=== PATIENT | female | born 1930 | race African-American/Black ===

== ENCOUNTER 2018-08-08 20:00 | Inpatient (IN) | payer MEDICAID, MEDICARE, OTHER ==
[~2018-08-08] VITALS: Ht 157.5 cm; Wt 52.2 kg
--- NOTE | 2018-08-08 01:40 | NUR ---
PETER RECEIVED FROM ER VIA [facility], AN 87 Y/O FEMALE WITH DIAGNOSIS OF DEHYDRATION. PLEASANTLY CONFUSED, UNABLE TO OBTAIN ANY INFORMATION, POOR HISTORIAN. HAS MULTIPLE WOUNDS, PICTURES TAKEN. COMBATIVE WHEN BEING REPOSITIONED. ORDERS CARRIED OUT , TELE SHOWING ST TO SB. NO SOB. V/S MONITORED. TO CONTINUE.
[~2018-08-08 20:00] MED LIST: AMLO5TAB9 PO; FURO40TA5 PO; HYDR-3980 PO; LEVO100T9 PO; LOSA50TA39 PO; MIRT15TA3 PO; POTA20TA10 PO
--- NOTE | 2018-08-08 20:22 | NUR ---
[id number] C/O GENERALIZED WEAKNESS "I FEEL BAD" PT POOR HISTORIAN. ALSO HAS KNEE PAIN, MOSTLY ON RIGHT SIDE. PER SON, PT HAS BONE TO BONE ARTHRITIS. PT IS AOX3, VSS, RR EVEN AND UNLABORED ON RA. NO ACUTE DISTRESS NOTED. SKIN INTACT. SON AND SISTER AT BEDSIDE. MADE COMFORTABLE AND READY FOR EVAL.
[2018-08-08 21:13] LABS: BASOPHILS # (AUTO) 0.1 /CMM (0.0-0.2); BASOPHILS % (AUTO) 1.1 % (0.0-2.0); EOSINOPHILS % (AUTO) 2.6 % (0.0-6.0); HEMATOCRIT 41 % (33-45); LYMPHOCYTES # (AUTO) 1.6 /CMM (0.8-4.8); MEAN CORPUSCULAR HGB CONC 32 g/dl (31.0-36.0); MEAN CORPUSCULAR VOLUME 95 fL (82-100); MONOCYTES # (AUTO) 0.8 /CMM (0.1-1.30); MONOCYTES % (AUTO) 7.8 % (2.0-12.0); NEUTROPHILS # (AUTO) 6.9 /CMM (1.8-8.9); NEUTROPHILS % (AUTO) 71.5 % (43.0-81.0); PLATELET COUNT (AUTO) 309 /CMM (150-450); RED BLOOD CELL COUNT(AUTO) 4.25 MIL/uL (4.0-5.2); WHITE BLOOD COUNT (AUTO) 9.7 K/uL (4.3-11.0)
[2018-08-08 21:23] LABS: CALCIUM, SERUM 9.4 mg/dL (8.5-10.1); CARBON DIOXIDE 26 mmol/L (21-32); CHLORIDE 104 mmol/L (98-107); CREATININE 0.5 mg/dL (0.6-1.3); GLUCOSE 108 mg/dL (74-106); POTASSIUM 3.5 mmol/L (3.5-5.1); SODIUM SERUM 138 mmol/L (136-145); UREA NITROGEN, BLOOD 18 mg/dL (7-18)
[2018-08-08 21:28] LABS: ALANINE AMINOTRANSFERASE 30 U/L (12-78); ALBUMIN 2.8 g/dL (3.4-5.0); ALKALINE PHOSPHATASE 127 U/L (46-116); ASPARTATE AMINOTRANSFERASE 20 U/L (15-37); BILIRUBIN,DIRECT 0.1 mg/dL (0.0-0.2); BILIRUBIN,TOTAL 0.4 mg/dL (0.2-1.0); TOTAL PROTEIN, SERUM 7.2 g/dL (6.4-8.2)
--- NOTE | 2018-08-08 23:04 | NUR ---
PT RESTING WITH FAMILY AT BEDSIDE. NO COMPLAINTS AT THIS TIME. WILL CONT TO MONITOR.
[2018-08-08] MEDS ORDERED: MORPHINE SULFATE INJ 2 MG/ML DISP.SYRIN IV ONE (23:30)
[2018-08-08] MEDS ORDERED: IV NS 0.9% 1,000 ML BAG IV ONE (23:30)
[2018-08-08] MEDS ORDERED: ONDANSETRON HCL/PF 4 MG/2 ML VIAL IVP ONE (23:30)
[2018-08-08 23:55] LABS: APPEARANCE,URINE Clear (CLEAR); BILIRUBIN,URINE Negative (NEGATIVE); BLOOD, URINE Negative Ery/uL (NEGATIVE); COLOR,URINE Yellow (YELLOW); KETONES,URINE Negative (NEGATIVE); LEUKOCYTE ESTERASE ,URINE Negative (NEGATIVE); NITRITE, URINE Negative (NEGATIVE); PH,URINE 6.5 (5.0-8.0); PROTEIN,URINE Negative (NEGATIVE); UGLUCOSE Negative (NEGATIVE)
[2018-08-09 00:23] LABS: BACTERIA,URINE Rare /HPF (None Seen); RBC,URINE 0-2 /HPF (0-2); SQUAMOUS EPITHELIAL CELL,UR Rare /HPF (None Seen); WBC,URINE 0-2 /HPF (0-3)
[2018-08-09] MEDS ORDERED: ONDANSETRON HCL/PF 4 MG/2 ML VIAL ONE (00:23)
[2018-08-09] MEDS ORDERED: MORPHINE SULFATE INJ 2 MG/ML DISP.SYRIN ONE (00:23)
--- NOTE | 2018-08-09 00:32 | NUR ---
BED ASSIGNMENT TELE 310-2
[2018-08-09] MEDS ORDERED: MORPHINE SULFATE INJ 2 MG/ML DISP.SYRIN IV ONE (01:00)
[2018-08-09] MEDS ORDERED: Z GUARD REMEDY 2 OZ OINT TP PRN (01:00)
[2018-08-09] MEDS ORDERED: ONDANSETRON HCL/PF 4 MG/2 ML VIAL IVP PRN (01:00)
[2018-08-09] MEDS ORDERED: MAGNESIUM HYDROXIDE 30 ML UDC PO PRN (01:00)
[2018-08-09] MEDS ORDERED: MAG HYDROX/AL HYDROX/SIMETH 30 ML UDC PO PRN (01:00)
[2018-08-09] MEDS ORDERED: ZOLPIDEM TARTRATE 5 MG TABLET PO PRN (01:00)
--- NOTE | 2018-08-09 01:09 | NUR ---
REPORT GIVEN TO SOLOMON RIVAS FOR [id number]
--- NOTE | 2018-08-09 01:36 | NUR ---
[facility]
[2018-08-09] MEDS: IV NS 0.9% 1,000 ML IV SCH ×3 (02:26→22:10)
[2018-08-09 03:46] VITALS: BP 141/58
--- NOTE | 2018-08-09 03:50 | NUR ---
MSRN PULLED OUT HL AND TELE MONITOR. UNABLE TO RESTART, UNCOOPERATIVE THIS TIME.
[2018-08-09 04:00] VITALS: BP 138/88
[2018-08-09] MEDS ORDERED: Magnesium 1GM/D5W 100ML PREMIX PIGGYBACK IV SCH (04:00)
--- NOTE | 2018-08-09 05:00 | NUR ---
MSRN SON MONTY CAME , ABLE TO PROVIDE INFO. WANTS HIS MOTHER TO BE FULL CODE AND STATES HAS DPOA. STAYED WITH PATIENT FOR AWHILE, PATIENT AGREED TO HAVE HL INSERTED.
--- NOTE | 2018-08-09 05:30 | NUR ---
MSRN PRESENT IVF CONTINUED, [PLACED CALL TO DR. RAMON, MAG LEVEL WAS 1.6, ORDERS RECEIVED.
--- NOTE | 2018-08-09 07:00 | NUR ---
MSRN ENDORSED TO INCOMING RN FOR CONTINUITY OF CARE.
[2018-08-09] MEDS: Magnesium 1GM/D5W 100ML PREMIX 100 ML IV SCH ×2 (07:50→09:47)
[2018-08-09 08:00] VITALS: BP_SYST 121; BP_SYST 129; BP_DIAS 66; BP_DIAS 72
--- NOTE | 2018-08-09 08:00 | NUR ---
RN NOTES RECEIVED PATIENT IN THE ROOM TELE SR-56, PATIENT STABLE NO ACUTE RESPIRATORY DISTRESS, V/S STABLE ADMINISTERED SCHEDULED MEDICATION, ASSIST TURN AND REPOSTION Q 2 HR. DVT PUMP ON. PATIENT HAS A MULTIPLE WOUNDS ON BUTTOCK AREA, AND COMPLAINING OF PAIN ON LEFT KNEE. PATIENT INCONTINENT, ON DIAPER, APPLIED Z-GUARD. CALL LIGHT WITHIN TO REACH , SAFETY PRECAUTION MAINTAINED ALL THE TIME.
[2018-08-09] MEDS ORDERED: HYDROCODONE/APAP 10/325MG 1 EA TABLET PO SCH (09:00)
[2018-08-09] MEDS ORDERED: Magnesium 1GM/D5W 100ML PREMIX 100 ML IV SCH (09:09)
[2018-08-09] MEDS: FUROSEMIDE 40 MG TABLET PO SCH ×2 (09:47→16:23)
[2018-08-09] MEDS: POTASSIUM CHLORIDE 20 MEQ TAB.PRT.SR PO SCH ×3 (09:47→11:02)
[2018-08-09] MEDS: LOSARTAN POTASSIUM 50 MG TABLET PO SCH (09:47)
[2018-08-09] MEDS: AMLODIPINE BESYLATE 5 MG TABLET PO SCH (09:48)
[2018-08-09] MEDS: LEVOTHYROXINE SODIUM 100 MCG TABLET PO SCH (09:59)
[2018-08-09] MEDS: HYDROCODONE/APAP 5/325MG 1 EACH TABLET PO PRN ×2 (11:03→16:24)
--- NOTE | 2018-08-09 11:03 | NUR ---
rn notes administered narco 5/325 mg po prn for generalized pain 08/14 per patient request bp-121/66, p-86, also seen by wound nurse. DVT pump on. Assist patient turn and reposition q 2 hr. call light within to reach.
--- NOTE | 2018-08-09 11:06 | NUR ---
WOUND CARE CONSULT: PT PRESENTS WITH LEFT LOWER EXTREMITY CONTRACTURE, RT LATERAL ANKLE INTACT DEEP TISSUE INJURY, DRY ABRASIONS TO KNEES, UNSTAGEABLE ULCER TO RT HIP, SCARRING TO SACRUM EXTENDING TO RT BUTTOCK AND INCONTINENCE ASSOCIATED SKIN DAMAGE (OPEN SKIN) TO GLUTEAL CREASE AND LEFT BUTTOCK, ALL PRESENT ON ADMISSION. PT AGITATED AT TIMES. RECOMMEND SURGICAL CONSULT. DR YO SINGH NOTIFIED OF CONSULT REQUEST. FIRST STEP LOW AIRLOSS MATTRESS ON ORDER. RECOMMENDATIONS MADE FOR SKIN PROTECTION. DISCUSSED WITH NURSING STAFF. DEFER TO SURGICAL TEAM FOR WOUND TREATMENT PLAN. WILL SEE PRLeah NOVAK IN AGREEMENT WITH PLAN OF CARE. DIETARY AND SOCIAL SERVICE CONSULTS IN PLACE. CURRENT DUARTE SCORE IS 11. Addendum: 08/09/18 at 1109 by LAURIE LEWIS WNDNU Amended: Links added.
[2018-08-09] MEDS: MIRTAZAPINE SOLUTAB 15 MG/UDTABLET TAB.RAPDIS PO SCH (12:41)
[2018-08-09 16:00] VITALS: BP 129/88
--- NOTE | 2018-08-09 16:24 | NUR ---
rn notes administered narco 5/325 mg po prn liza left knee pain /10 per patient request, v/s taken bp -129/88, p-75, family next to the bed, assist turn and reposition q 2 hr. continued monitoring.
--- NOTE | 2018-08-09 17:00 | NUR ---
RN NOTES PATIENT SON AND SISTER NEXT TO THE BED, ASKING TOPICAL MEDICATION ON LEFT KNEE PAIN. NOTIFIED Dr. SUN, AND GET TO ORDER LIDOCAINE 5% PATCH. ORDER TAKEN AND CARRIED OUT., PATIENT SIGN CONSENT FORM FOR DEBRIDEMENT ON RIGHT HIP, AND BUTTOCK PER WOUND MARLO HUTCHINS.APPLIED AIR MATTRESS. CONTINUED MONITORING.
[2018-08-09] MEDS: LIDOCAINE 5% (PATCH) 1 EA PATCH TP SCH (18:12)
--- NOTE | 2018-08-09 18:30 | NUR ---
RN NOTES PATIENT STABLE ASSIST PER UNDERCOLLAR MAKER FOR EATING DINNER. PATIENT STABLE AFTER PAIN MEDICATION. CALL LIGHT WITHIN TO REACH. ASSIST TURN AND REPOSTION Q 2 HR. ENDORSED ONCOMING NURSE FOLLOW PLAN OF CARE.
--- NOTE | 2018-08-09 19:54 | NUR ---
MS RN NOTES RECEIVED ON BED A/O X4,CALM AND QUIET,BREATHING REGULAR,NOT IN ANY FORM OF DISTRESS.IVF NS AT 100ML/HR RATE IN PROGRESS ON LFA,SITE PATENT.NOTED MULTIPLE SMALL WOUNDS ON RIGHT HIP,RIGHT LEFT BUTTOCKS,PLANNED DEBRIDEMENT AT BEDSIDE TOMORROW.REPOSITION PER PROTOCOL.WILL CONTINUE TO MONITOR STATUS.
[2018-08-09 20:00] VITALS: BP 127/67
[2018-08-09] MEDS ORDERED: LIDOCAINE 1%-EPI 1:100,000 20 ML VIAL TP PRN (23:00)
[2018-08-09] MEDS: HYDROGEL DRESSING 90 GM TUBE TP SCH (23:29)
[2018-08-09] MEDS: Z GUARD REMEDY 2 OZ OINT TP SCH (23:29)
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
[2018-08-10 06:42] LABS: BASOPHILS # (AUTO) 0.1 /CMM (0.0-0.2); BASOPHILS % (AUTO) 0.9 % (0.0-2.0); EOSINOPHILS % (AUTO) 4.3 % (0.0-6.0); HEMATOCRIT 42 % (33-45); HEMOGLOBIN 13.6 g/dL (11.5-14.8); LYMPHOCYTES # (AUTO) 1.5 /CMM (0.8-4.8); LYMPHOCYTES % (AUTO) 20.6 % (20.0-44.0); MEAN CORPUSCULAR HGB CONC 32 g/dl (31.0-36.0); MEAN CORPUSCULAR VOLUME 95 fL (82-100); MONOCYTES # (AUTO) 0.7 /CMM (0.1-1.30); MONOCYTES % (AUTO) 9.1 % (2.0-12.0); NEUTROPHILS # (AUTO) 4.7 /CMM (1.8-8.9); NEUTROPHILS % (AUTO) 65.1 % (43.0-81.0); PLATELET COUNT (AUTO) 306 /CMM (150-450); RED BLOOD CELL COUNT(AUTO) 4.44 MIL/uL (4.0-5.2); WHITE BLOOD COUNT (AUTO) 7.3 K/uL (4.3-11.0)
[2018-08-10 07:00] LABS: ALANINE AMINOTRANSFERASE 25 U/L (12-78); ALBUMIN 2.9 g/dL (3.4-5.0); ALKALINE PHOSPHATASE 145 U/L (46-116); ASPARTATE AMINOTRANSFERASE 19 U/L (15-37); BILIRUBIN,TOTAL 0.6 mg/dL (0.2-1.0); CALCIUM, SERUM 9.2 mg/dL (8.5-10.1); CARBON DIOXIDE 30 mmol/L (21-32); CHLORIDE 104 mmol/L (98-107); CREATININE 0.6 mg/dL (0.6-1.3); GLUCOSE 103 mg/dL (74-106); PHOSPHORUS 3.3 mg/dL (2.5-4.9); POTASSIUM 4.2 mmol/L (3.5-5.1); SODIUM SERUM 141 mmol/L (136-145); TOTAL PROTEIN, SERUM 7.6 g/dL (6.4-8.2); UREA NITROGEN, BLOOD 8 mg/dL (7-18)
[2018-08-10 07:04] LABS: CHOLESTEROL 205 mg/dL (<200); HDL CHOLESTEROL 74 mg/dL (40-60); LDL 121 mg/dL (0-99); THYROID STIMULATING HORMONE 34.788 uIU/mL (0.358-3.74); TRIGLYCERIDES 59 mg/dL (30-150)
[2018-08-10 08:00] VITALS: BP 131/68
--- NOTE | 2018-08-10 08:00 | NUR ---
rn notes SEEN PATIENT IN THE BED A/O X2/3. PATIENT STABLE, REFUSED PAIN, NO RESPIRATORY DISTRESS. PATIENT BED BOUND, ASSIST TURN AND REPOSTION Q 2 HR. PATIENT EATING BREAKFAST. ADMINISTERED SCHEDULED MEDICATION. DVT PUMP ON, DRESSING CHANGED. PATIENT ON AIR MATTRESS. IV ACCESS ON LEFT FA INTACT, INFUSING NS AT 100 ML/HR.
[2018-08-10] MEDS: AMLODIPINE BESYLATE 5 MG TABLET PO SCH (08:41)
[2018-08-10] MEDS: LOSARTAN POTASSIUM 50 MG TABLET PO SCH (08:41)
[2018-08-10] MEDS: FUROSEMIDE 40 MG TABLET PO SCH (08:41)
[2018-08-10] MEDS: LEVOTHYROXINE SODIUM 100 MCG TABLET PO SCH (08:41)
[2018-08-10] MEDS: MIRTAZAPINE SOLUTAB 15 MG/UDTABLET TAB.RAPDIS PO SCH (08:41)
[2018-08-10] MEDS: POTASSIUM CHLORIDE 20 MEQ TAB.PRT.SR PO SCH (08:41)
[2018-08-10] MEDS: HYDROGEL DRESSING 90 GM TUBE TP SCH ×2 (08:42→20:49)
[2018-08-10] MEDS: Z GUARD REMEDY 2 OZ OINT TP SCH ×2 (08:42→20:50)
[2018-08-10] MEDS: IV NS 0.9% 1,000 ML IV SCH (08:48)
--- NOTE | 2018-08-10 12:00 | NUR ---
RN NOTES PATIENT STABLE, REFUSED PAIN, ASSIST TURN AND REPOSTION Q 2 HR. CONTINUED MONITORING. CALL LIGHT WITHIN TO REACH.
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
[2018-08-10 16:00] VITALS: BP 100/54
--- NOTE | 2018-08-10 17:00 | NUR ---
rn notes debridement done on bedside by Paige SELLERS. patient stable, picture taken. patient stable refused pain, tolerated procedure well. call light within to reach, son next to the bed. continued monitoring.
[2018-08-10] MEDS: LIDOCAINE 5% (PATCH) 1 EA PATCH TP SCH (17:39)
[2018-08-10] MEDS: PANTOPRAZOLE 40 MG TABLET.DR PO SCH (17:39)
[2018-08-10] MEDS: ENOXAPARIN SODIUM 30 MG/0.3 ML DISP.SYRIN SQ SCH (17:40)
[2018-08-10] MEDS: ENSURE ENLIVE CHOC 237 ML CAN PO SCH (17:41)
--- NOTE | 2018-08-10 18:30 | NUR ---
RN NOTES PATIENT STABLE, ADMINISTERED SCHEDULED MEDICATION, V/S STABLE. PATIENT EATING DINNER, REFUSED PAIN. CALL LIGHT WITHIN TO REACH, SAFETY PRECAUTION MAINTAINED ALL THE TIME. NEEDS ATTENDED AND ANTICIPATED. ENDORSED ONCOMING NURSE FOLLOW PLAN OF CARE.
--- NOTE | 2018-08-10 19:40 | NUR ---
MS RN NOTES RECEIVED ON BED A/O X2,WITH EPISODE OF CONFUSION.SALINE LOCK LEFT FORE ARM INTACT AND PATENT.S/O WOUND DEBRIDEMENT ON RIGHT HIP AND RIGHT BUTTOCK.MEPILEX IN PLACE.SPECIALTY MATTRESS IN USED FOR WOUND MANAGEMENT.REPOSITION Q 2 HOURS PER PROTOCOL.FALL PRECAUTION OBSERVED,BED ON LOWEST POSITION AND LOCKED.CALL LIGHT IN REACH,NEEDS ANTICIPATED.
[2018-08-10 20:00] VITALS: BP 109/57
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
--- NOTE | 2018-08-10 21:00 | NUR ---
MS RN NOTES MACHO MILLAN AT BEDSIDE THIS TIME.
[2018-08-10] MEDS: HYDROCODONE/APAP 5/325MG 1 EACH TABLET PO PRN (22:11)
--- NOTE | 2018-08-10 22:11 | NUR ---
MS RN NOTES NOTED HAVING FACIAL GRIMACE,MEDICATED WITH NORCO 5/325MG,1TAB PO ORDERED.
--- NOTE | 2018-08-11 | NUR ---
MS RN NOTES SLEEPING AT THIS TIME,KEPT WARM AND COMFORTABLE.
--- NOTE | 2018-08-11 06:41 | NUR ---
MS RN NOTES ON BED SLEEPING,TYRON FOR PAIN MANAGEMENT EFFECTIVE.DRESSING CHANGE DONE TO RIGHT HIP AND SACRAL AREA.REPOSITION PER PROTOCOL.CALL LIGHT IN REACH,NEEDS ANTICIPATED.
[2018-08-11] MEDS: PANTOPRAZOLE 40 MG TABLET.DR PO SCH (07:30)
[2018-08-11] MEDS: LEVOTHYROXINE SODIUM 100 MCG TABLET PO SCH (07:30)
--- NOTE | 2018-08-11 07:30 | NUR ---
MS RN Opening Note Patient currently resting in bed with eyes open in Semi-Fowlers position, no acute distress noted. Aspiration precautions maintained. Easily arousable to verbal and tactile stimuli. Alert and oriented x 2, able to make needs known. Does not state any pain. Respirations even and unlabored on room air. Peripheral IV access to the left forearm 20 gauge, intact, patent and saline locked. Safety and fall precautions in place: bed in lowest and locked position, side rails up x2, bed alarm on, call light and personal possessions in reach, room well lit, floor clutter-free. Patient currently clean, dry and comfortable, on Isoflex specialty mattress. Will continue to monitor and intervene as needed.
[2018-08-11 08:00] VITALS: BP 124/57
[2018-08-11] MEDS: ENSURE ENLIVE CHOC 237 ML CAN PO SCH ×3 (10:23→17:31)
[2018-08-11] MEDS: AMLODIPINE BESYLATE 5 MG TABLET PO SCH (10:24)
[2018-08-11] MEDS: LOSARTAN POTASSIUM 50 MG TABLET PO SCH (10:24)
[2018-08-11] MEDS: POTASSIUM CHLORIDE 20 MEQ TAB.PRT.SR PO SCH (10:24)
[2018-08-11] MEDS: Z GUARD REMEDY 2 OZ OINT TP SCH ×2 (10:25→21:15)
[2018-08-11] MEDS: HYDROGEL DRESSING 90 GM TUBE TP SCH ×2 (10:25→21:15)
[2018-08-11] MEDS: MIRTAZAPINE SOLUTAB 15 MG/UDTABLET TAB.RAPDIS PO SCH (10:27)
--- NOTE | 2018-08-11 13:00 | NUR ---
m/s clinical education coordinator: md visit seen and examined by dr. vasquez with new orders. orders acknowledged. for case management to make arrangement re: d'c planning to acute rehab. dr. vasquez called son and updated plan of care over the phone. will continue to monitor.
--- NOTE | 2018-08-11 15:00 | NUR ---
m/s correction officer [facility]: notes pt in bed resting comfortable with sitter at bedside. call light within reach. will monitor.
[2018-08-11 16:00] VITALS: BP 95/56
--- NOTE | 2018-08-11 17:00 | NUR ---
m/s wet process head miller: notes dinner served with hob elevated. sitter remains at bedside. will monitor.
[2018-08-11] MEDS: LIDOCAINE 5% (PATCH) 1 EA PATCH TP SCH (17:29)
--- NOTE | 2018-08-11 18:15 | NUR ---
m/s spindle frame carver: notes incontinent care rendered by sitter. needs attended. no distress noted. will continue to monitor.
--- NOTE | 2018-08-11 19:00 | NUR ---
m/s mortgage funder: notes report given to teresa (rn) for continuity of care.
--- NOTE | 2018-08-11 19:20 | NUR ---
MS RN NOTES RECEIVED ON BED A/O X1-2,WITH EPISODE OF CONFUSION,BREATHING NORMAL,KCI MATTRESS IN USED FOR WOUND MANAGEMENT,S/P WOUND DEBRIDEMENT ON RIGHT BUTTOCK AND RIGHT HIP AREA,MEPILEX IN PLACE.SITTER AT BEDSIDE FOR SAFETY.REPOSITION PER PROTOCOL.CALL LIGHT IN REACH,NEEDS ANTICIPATED.
[2018-08-11 20:00] VITALS: BP 97/50
[2018-08-11] MEDS: ENOXAPARIN SODIUM 30 MG/0.3 ML DISP.SYRIN SQ SCH (21:06)
[2018-08-11] MEDS: ACETAMINOPHEN 325 MG TABLET PO PRN (21:09)
--- NOTE | 2018-08-11 21:09 | NUR ---
MS RN NOTES MOREKHA,CLAIMED PAIN 3/10 ON PAIN SCALE.TYLENOL 650MG PO GIVEN ORDERED.
--- NOTE | 2018-08-11 21:21 | NUR ---
MS RN NOTES DRESSING CHANGED DONE RIGHT HI WOUND AND RIGHT BUTTOCKS AREA WITH CURASOL AND APPLIED MEPILEX,REPOSITION.
--- NOTE | 2018-08-12 06:14 | NUR ---
MS RN NOTES SLEPT WELL WITH TYLENOL.PAIN ON RIGHT BUTTOCKS IMPROVED.POSSIBLE DISCHARGE TO [facility] FOR AMBULATION.IN NO ACUTE DISTRESS.WILL ENDORSE TO DAY NURSE FOR LORY.
--- NOTE | 2018-08-12 07:30 | NUR ---
RN MS NOTES PT IN BED, AWAKE, ALERT TO SELF, VERBALLY RESPONSIVE, NO COMPLAINT OF PAIN OR ANY DISCOMFORT, CALL LIGHT WITHIN REACH, KEPT WARM AND COMFORTABLE IN BED, SAFETY PRECAUTIONS OBSERVED.
[2018-08-12 08:00] VITALS: BP 103/50
[2018-08-12] MEDS: LEVOTHYROXINE SODIUM 100 MCG TABLET PO SCH (08:18)
[2018-08-12] MEDS: PANTOPRAZOLE 40 MG TABLET.DR PO SCH (08:18)
[2018-08-12] MEDS: ENSURE ENLIVE CHOC 237 ML CAN PO SCH ×3 (08:19→17:21)
[2018-08-12] MEDS: MIRTAZAPINE SOLUTAB 15 MG/UDTABLET TAB.RAPDIS PO SCH (08:19)
[2018-08-12] MEDS: POTASSIUM CHLORIDE 20 MEQ TAB.PRT.SR PO SCH (08:19)
[2018-08-12] MEDS: LOSARTAN POTASSIUM 50 MG TABLET PO SCH (08:20)
[2018-08-12] MEDS: AMLODIPINE BESYLATE 5 MG TABLET PO SCH (08:20)
[2018-08-12] MEDS: HYDROGEL DRESSING 90 GM TUBE TP SCH ×2 (08:51→21:22)
[2018-08-12] MEDS: Z GUARD REMEDY 2 OZ OINT TP SCH ×2 (08:51→21:22)
--- NOTE | 2018-08-12 12:31 | NUR ---
RN MS NOTES PT IN BED, AWAKE, ALERT TO SELF, VERBALLY RESPONSIVE, NO COMPLAINT AT THIS TIME, RESPIRATIONS NORMAL, ASSISTED WITH MEALS, ASSISTED IN REPOSITIONING, CALL LIGHT WITHIN REACH, NEEDS ATTENDED.
--- NOTE | 2018-08-12 14:15 | NUR ---
RN MS NOTES PT'S SON BETTY CAME TO VISIT HIS MOM AROUND NOONTIME, WHEN HE LEFT AT THIS TIME 1415, HE REPORTED TO THE RN AND CHARGE NURSE THAT HIS MOTHER'S CELLPHONE IS MISSING, INFORMED HIM THAT IT WILL BE CHECKED, SEARCHED PT'S ROOM, HER BED, DRAWERS, SHEETS, NO CELLPHONE WAS FOUND. ALSO MADE CALLS TO KITCHEN AND LAUNDY, THEY DID NOT FIND ANY CELLPHONE. CHARGE NURSE AND FREIGHT TALLIER INFORMED.
[2018-08-12 16:00] VITALS: BP 113/48
[2018-08-12] MEDS: LIDOCAINE 5% (PATCH) 1 EA PATCH TP SCH (17:17)
--- NOTE | 2018-08-12 18:07 | NUR ---
RN MS NOTES PT IN BED, AWAKE, ALERT AND VERBALLY RESPONSIVE, NO COMPLAINT OF PAIN AT THIS TIME, RESPIRATIONS NORMAL, CALL LIGHT WITHIN REACH, ASSISTED WITH MEALS, WOUND CARE PROVIDED, PM CARE RENDERED, KEPT CLEAN AND DRY, ALL NEEDS ATTENDED.
--- NOTE | 2018-08-12 19:30 | NUR ---
MS RN NOTE: PATIENT RESTING IN BED NO ACUTE DISTRESS NOTED. BREATHING EVEN AND UNLABORED, NO SOB NOTED. IV TO LFA IN PLACE. BED LOCKED AND IN LOWEST POSITION, CALL LIGHT IN REACH. WILL CONTINUE TO MONITOR.
[2018-08-12 20:00] VITALS: BP 94/43
[2018-08-12] MEDS: ENOXAPARIN SODIUM 30 MG/0.3 ML DISP.SYRIN SQ SCH (21:22)
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
--- NOTE | 2018-08-13 06:10 | NUR ---
MS RN NOTE: PATIENT RESTING IN BED NO ACUTE DISTRESS NOTED. BREATHING EVEN AND UNLABORED, NO SOB NOTED. IV TO LFA IN PLACE. BED LOCKED AND IN LOWEST POSITION, CALL LIGHT IN REACH. WILL ENDORSE TO DAY NURSE TO CONTINUE WITH PLAN OF CARE.
[2018-08-13 08:00] VITALS: BP 112/59
--- NOTE | 2018-08-13 08:00 | NUR ---
RN NOTES RECEIVED PATIENT IN THE BED A/O X2/3 WITH CONFUSION. PATIENT HAS NO ACUTE RESPIRATORY DISTRESS, ON AIR MATTRESS, DVT PUMP ON. V/S TAKEN STABLE, PATIENT TOTAL CARE, ASSIST TURN AND REPOSTION Q 2 HR. IV ACCESS ON LEFT FA INTACT. ADMINISTERED SCHEDULED MEDICATION, CALL LIGHT WITHIN TO REACH. DRESSING CHANGED ON RIGHT HIP, AND BUTTOCKS, KEEP BOTH LEGS ELEVATED USING PILLOWS SAFETY PRECAUTION MAINTAINED ALL THE TIME.
[2018-08-13] MEDS: MIRTAZAPINE SOLUTAB 15 MG/UDTABLET TAB.RAPDIS PO SCH (08:48)
[2018-08-13] MEDS: LEVOTHYROXINE SODIUM 100 MCG TABLET PO SCH (08:48)
[2018-08-13] MEDS: ENSURE ENLIVE CHOC 237 ML CAN PO SCH ×3 (08:49→18:24)
[2018-08-13] MEDS: PANTOPRAZOLE 40 MG TABLET.DR PO SCH (08:49)
[2018-08-13] MEDS: POTASSIUM CHLORIDE 20 MEQ TAB.PRT.SR PO SCH (08:49)
[2018-08-13] MEDS: LOSARTAN POTASSIUM 50 MG TABLET PO SCH (08:50)
[2018-08-13] MEDS: HYDROGEL DRESSING 90 GM TUBE TP SCH (08:50)
[2018-08-13] MEDS: Z GUARD REMEDY 2 OZ OINT TP SCH (08:51)
[2018-08-13] MEDS: AMLODIPINE BESYLATE 5 MG TABLET PO SCH (08:51)
[2018-08-13] MEDS: ACETAMINOPHEN 325 MG TABLET PO PRN ×2 (08:58→18:29)
--- NOTE | 2018-08-13 08:58 | NUR ---
RN NOTES ADMINISTERED TYLENOL 650 MG PO PRN FOR LEFT KNEE PAIN 09/13 PER PATIENT REQUEST. CONTINUED MONITORING.
[2018-08-13 12:14] LABS: BASOPHILS # (AUTO) 0.1 /CMM (0.0-0.2); BASOPHILS % (AUTO) 0.6 % (0.0-2.0); EOSINOPHILS % (AUTO) 1.4 % (0.0-6.0); HEMATOCRIT 38 % (33-45); LYMPHOCYTES # (AUTO) 1.2 /CMM (0.8-4.8); LYMPHOCYTES % (AUTO) 12.2 % (20.0-44.0); MEAN CORPUSCULAR HGB CONC 32 g/dl (31.0-36.0); MEAN CORPUSCULAR VOLUME 95 fL (82-100); MONOCYTES # (AUTO) 0.8 /CMM (0.1-1.30); MONOCYTES % (AUTO) 7.9 % (2.0-12.0); NEUTROPHILS % (AUTO) 77.9 % (43.0-81.0); PLATELET COUNT (AUTO) 277 /CMM (150-450); RED BLOOD CELL COUNT(AUTO) 3.98 MIL/uL (4.0-5.2); WHITE BLOOD COUNT (AUTO) 10.2 K/uL (4.3-11.0)
--- NOTE | 2018-08-13 12:22 | NUR ---
RN NOTES MEDICATION WERE ADMINISTERED FOR PAIN EFFECTIVE, PATIENT IN THE BED EATING LUNCH. ASSIST TURN AND REPOSTION Q 2 HR. SEEN PATIENT BY Dr. ANDERS PATIENT WILL D/C SNF. SON NAME BETTY AWARE OF. CONTINUED MONITORING
[2018-08-13 12:57] LABS: CALCIUM, SERUM 9.7 mg/dL (8.5-10.1); CARBON DIOXIDE 27 mmol/L (21-32); CHLORIDE 102 mmol/L (98-107); GLUCOSE 107 mg/dL (74-106); POTASSIUM 4.1 mmol/L (3.5-5.1); SODIUM SERUM 137 mmol/L (136-145); UREA NITROGEN, BLOOD 16 mg/dL (7-18)
[2018-08-13 12:58] LABS: ALANINE AMINOTRANSFERASE 22 U/L (12-78); ALBUMIN 2.4 g/dL (3.4-5.0); ALKALINE PHOSPHATASE 128 U/L (46-116); ASPARTATE AMINOTRANSFERASE 17 U/L (15-37); BILIRUBIN,TOTAL 0.4 mg/dL (0.2-1.0); CREATININE 0.5 mg/dL (0.6-1.3); TOTAL PROTEIN, SERUM 6.9 g/dL (6.4-8.2)
[2018-08-13 16:00] VITALS: BP 129/67
[2018-08-13] MEDS: LIDOCAINE 5% (PATCH) 1 EA PATCH TP SCH (18:24)
--- NOTE | 2018-08-13 18:29 | NUR ---
RN NOTES ADMINISTERED TYLENOL 650 MG PO PRN FOR LEFT KNEE PAIN 5/10 PER PATIENT REQUEST, CONTINUED MONITORING.
--- NOTE | 2018-08-13 19:15 | NUR ---
TELEPHONER NOTES PATIENT DISCHARGE AT THIS TIME GOING SNF. PATIENT STABLE REFUSED PAIN, V/S WNL, HAS NO ACUTE RESPIRATORY DISTRESS. MED RECONCILIATION AND DISCHARGE ORDER REVIEWED AND EXPLAINED TO. REPORT GIVEN SNF RN. RN VERBALIZED UNDERSTANDING. SON AWARE OF DISCHARGE PLANING. PATIENT SIGN PAPERWORK, PICTURE TAKEN. PATIENT PHYSICIAN ASSISTANT CERTIFIED BY AMBULANCE. PATIENT WILL FOLLOW SNF CIRCUIT BOARD DRAFTER Dr ANDERS.
--- NOTE | 2018-08-15 15:58 | NUR ---
SW received a call from [facility] social media developer Emiliana inquiring as to where pt. was discharged to. Pt. was discharged to [facility] located at [facility] Mitchell Alvarado .
== END 2018-08-13 19:25 | DRG 264 ==
LOC: ER 20:05 → TELE 08-09 00:41 → MED 08-09 10:44
PROVIDERS: ADMIT Internal Medicine; ATTEND Internal Medicine
PROC: 0JB70ZZ Excision of Back Subcutaneous Tissue and Fascia, Open Approach (ICD-10-PCS; principal; 2018-08-10)
PROC: 0JB90ZZ Excision of Buttock Subcutaneous Tissue and Fascia, Open Approach (ICD-10-PCS; 2018-08-10)
DX: I49.5 Sick sinus syndrome (principal); L89.213 Pressure ulcer of right hip, stage 3; L89.313 Pressure ulcer of right buttock, stage 3; L89.103 Pressure ulcer of unspecified part of back, stage 3; E44.1 Mild protein-calorie malnutrition; I10 Essential (primary) hypertension; E83.42 Hypomagnesemia; L89.150 Pressure ulcer of sacral region, unstageable; E03.9 Hypothyroidism, unspecified; E86.0 Dehydration; E78.5 Hyperlipidemia, unspecified; I70.0 Atherosclerosis of aorta; G89.29 Other chronic pain; K21.9 Gastro-esophageal reflux disease without esophagitis; M81.0 Age-related osteoporosis without current pathological fracture; R62.7 Adult failure to thrive; L89.890 Pressure ulcer of other site, unstageable; R53.1 Weakness; L98.8 Other specified disorders of the skin and subcutaneous tissue; L89.510 Pressure ulcer of right ankle, unstageable; F32.9 Major depressive disorder, single episode, unspecified; M17.0 Bilateral primary osteoarthritis of knee; F29 Unspecified psychosis not due to a substance or known physiological condition; K59.00 Constipation, unspecified; F01.50 Vascular dementia, unspecified severity, without behavioral disturbance, psychotic disturbance, mood disturbance, and anxiety; M85.88 Other specified disorders of bone density and structure, other site; M22.42 Chondromalacia patellae, left knee
CPT/HCPCS: 36415; 71045-TC; 73564-TC; 80048-TC; 80053-TC; 80061-TC; 80076-TC; 81000-TC; 83735-TC; 84100-TC; 84439-TC; 84443-TC; 84484-TC; 85025-TC; 85730-TC; 87081-TC; 93307-TC; 97112-TC; 97530-TC; A6248; A6402; A6407; G0378; J1650; J2270; J2405; J3475; J3490; J7030